=== PATIENT | male | born 1970 | race Caucasian/White ===

== ENCOUNTER 2023-01-02 12:03 | Inpatient (IN) | payer OTHER ==
[2023-01-02 12:22] VITALS: BMI 24.7
[2023-01-02] MEDS ORDERED: hydrOXYzine PAMOATE 25 MG CAPSULE (FP) PO PRN (13:30)
[2023-01-02] MEDS ORDERED: LOPERAMIDE HCL 2 MG CAPSULE PO PRN (13:30)
[2023-01-02] MEDS ORDERED: IBUPROFEN 600 MG TABLET (FP) PO PRN (13:30)
[2023-01-02] MEDS ORDERED: ACETAMINOPHEN 325 MG TABLET (FP) PO PRN (13:30)
[2023-01-02] MEDS ORDERED: NICOTINE 21 MG/24 HOURS TOPICAL PATCH TD PRN (13:30)
[2023-01-02] MEDS ORDERED: chlordiazePOXIDE HCL 25 MG CAPSULE PO PRN (13:30)
[2023-01-02] MEDS ORDERED: POLYETHYLENE GLYCOL (HEALTHYLAX) 3350 17 GM PACKET PO PRN (13:30)
[2023-01-02] MEDS ORDERED: ONDANSETRON *ODT* 4 MG TABLET SL PRN (13:30)
[2023-01-02] MEDS ORDERED: NICOTINE POLACRILEX 4 MG GUM BUC PRN (13:30)
[2023-01-02] MEDS ORDERED: BENZOCAINE/MENTHOL (CHLORASEPTIC ) LOZENGE MM PRN (13:30)
[2023-01-02] MEDS ORDERED: DICYCLOMINE HCL 10 MG CAPSULE PO PRN (13:30)
[2023-01-02] MEDS ORDERED: BISMUTH SUBSALICYLATE 262 MG/15 ML BTL PO PRN (13:30)
[2023-01-02] MEDS ORDERED: MAG HYDROX/AL HYDROX/SIMETH 30 ML UNIT-DOSE CUP PO PRN (13:30)
[2023-01-02] MEDS ORDERED: guaiFENesin 600 MG TABLET.ER (FP) PO PRN (13:30)
[2023-01-02] MEDS ORDERED: MAGNESIUM HYDROX 2400MG/30ML ORAL SUSPENSION 30 ML CUP PO PRN (13:30)
[2023-01-02] MEDS ORDERED: METHOCARBAMOL 500 MG TABLET PO PRN (13:30)
[2023-01-02] MEDS ORDERED: IBUPROFEN 400 MG TABLET (FP) PO PRN (13:30)
[2023-01-02] MEDS ORDERED: BENZONATATE 200 MG CAPSULE PO PRN (13:30)
[2023-01-02] MEDS ORDERED: amLODIPine BESYLATE 10 MG TABLET (FP) PO ONE (13:36)
[2023-01-02] MEDS ORDERED: amLODIPine BESYLATE 5 MG TABLET (FP) ONE (14:19)
[2023-01-02] MEDS ORDERED: chlordiazePOXIDE HCL 25 MG CAPSULE ONE (14:21)
[2023-01-02] MEDS: cloNIDine HCL 0.1 MG TABLET PO PRN (15:00)
[2023-01-02] MEDS ORDERED: levETIRAcetam 250 MG TABLET PO ONE (15:00)
[2023-01-02 17:28] LABS: HEMATOCRIT 44.5 % (35.4-49); HEMOGLOBIN 15.1 GM/dL (11.7-16.9); MCH 32.9 pg (25.7-33.7); MCHC 33.9 g/dl (32.0-35.9); MEAN CELL VOLUME 97.2 fl (80-96); MEAN PLT VOLUME 8.2 fl (7.5-11.1); PLATELET COUNT 216 10^3/uL (134-434); RBC 4.58 M/mm3 (4.00-5.60); RDW 15.1 % (11.9-15.9)
[2023-01-02] MEDS: chlordiazePOXIDE HCL 25 MG CAPSULE PO SCH ×2 (17:36→22:13)
[2023-01-02 17:55] LABS: CALCIUM 8.8 mg/dL (8.5-10.1)
[2023-01-02 17:56] LABS: ALBUMIN 3.7 g/dl (3.4-5.0); BLOOD UREA NITROGEN 16.8 mg/dL (7-18)
[2023-01-02 18:00] LABS: BILIRUBIN,TOTAL 1.5 mg/dL (0.2-1)
[2023-01-02] MEDS: levETIRAcetam 250 MG TABLET PO SCH (22:10)
[2023-01-02] MEDS: MELATONIN 5 MG TABLETS PO SCH (22:13)
[2023-01-02] MEDS: THIAMINE HCL 100 MG TABLET (FP) PO SCH (22:15)
[2023-01-03] MEDS: chlordiazePOXIDE HCL 25 MG CAPSULE PO SCH ×4 (05:48→22:13)
[2023-01-03] MEDS ORDERED: levETIRAcetam 500 MG TABLET (FP) PO SCH (10:00)
[2023-01-03] MEDS: PRENATAL VITAMINS W/ FOLIC ACID TABLET (FP) PO SCH (10:33)
[2023-01-03] MEDS: amLODIPine BESYLATE 10 MG TABLET (FP) PO SCH (10:33)
[2023-01-03] MEDS: levETIRAcetam 500 MG TABLET (FP) PO SCH (10:34)
[2023-01-03] MEDS: MELATONIN 5 MG TABLETS PO SCH (22:12)
[2023-01-03] MEDS: THIAMINE HCL 100 MG TABLET (FP) PO SCH (22:12)
[2023-01-03] MEDS: levETIRAcetam 250 MG TABLET PO SCH (22:12)
[2023-01-04] MEDS: chlordiazePOXIDE HCL 25 MG CAPSULE PO SCH ×4 (05:45→22:02)
[2023-01-04] MEDS: levETIRAcetam 500 MG TABLET (FP) PO SCH (10:17)
[2023-01-04] MEDS: amLODIPine BESYLATE 10 MG TABLET (FP) PO SCH (10:17)
[2023-01-04] MEDS: PRENATAL VITAMINS W/ FOLIC ACID TABLET (FP) PO SCH (10:17)
[2023-01-04] MEDS: levETIRAcetam 250 MG TABLET PO SCH (22:02)
[2023-01-04] MEDS: THIAMINE HCL 100 MG TABLET (FP) PO SCH (22:02)
[2023-01-04] MEDS: MELATONIN 5 MG TABLETS PO SCH (22:04)
[2023-01-05] MEDS ORDERED: chlordiazePOXIDE HCL 10 MG CAPSULE PO PRN
[2023-01-05] MEDS: chlordiazePOXIDE HCL 10 MG CAPSULE PO SCH ×4 (05:26→22:07)
[2023-01-05] MEDS: PRENATAL VITAMINS W/ FOLIC ACID TABLET (FP) PO SCH (10:41)
[2023-01-05] MEDS: levETIRAcetam 500 MG TABLET (FP) PO SCH (10:41)
[2023-01-05] MEDS: amLODIPine BESYLATE 10 MG TABLET (FP) PO SCH (10:41)
[2023-01-05] MEDS: MELATONIN 5 MG TABLETS PO SCH (22:07)
[2023-01-05] MEDS: levETIRAcetam 250 MG TABLET PO SCH (22:07)
[2023-01-05] MEDS: THIAMINE HCL 100 MG TABLET (FP) PO SCH (22:07)
[2023-01-06] MEDS: chlordiazePOXIDE HCL 10 MG CAPSULE PO SCH ×2 (05:44→17:36)
[2023-01-06] MEDS: levETIRAcetam 500 MG TABLET (FP) PO SCH (10:09)
[2023-01-06] MEDS: PRENATAL VITAMINS W/ FOLIC ACID TABLET (FP) PO SCH (10:09)
[2023-01-06] MEDS: amLODIPine BESYLATE 10 MG TABLET (FP) PO SCH (10:09)
[2023-01-06] MEDS: cloNIDine HCL 0.1 MG TABLET PO PRN (17:36)
[2023-01-06] MEDS: levETIRAcetam 250 MG TABLET PO SCH (22:08)
[2023-01-06] MEDS: THIAMINE HCL 100 MG TABLET (FP) PO SCH (22:09)
[2023-01-06] MEDS: MELATONIN 5 MG TABLETS PO SCH (22:09)
[2023-01-07] MEDS ORDERED: chlordiazePOXIDE HCL 10 MG CAPSULE PO ONE (05:00)
[2023-01-07 10:01] VITALS: BP 157/92; PULSE 67; RESP 16; TEMP 97.9
== END 2023-01-07 09:41 | disposition home or self-care (01) | DRG 775 ==
LOC: YASAS 12:03 → Y3N 14:14
PROVIDERS: ADMIT Allergy & Immunology; ATTEND Surgery
PROC: HZ2ZZZZ Detoxification Services for Substance Abuse Treatment (ICD-10-PCS; principal; 2023-01-02)
DX: F10.230 Alcohol dependence with withdrawal, uncomplicated (principal); F17.210 Nicotine dependence, cigarettes, uncomplicated; F41.9 Anxiety disorder, unspecified; F32.A Depression, unspecified; G40.909 Epilepsy, unspecified, not intractable, without status epilepticus; I10 Essential (primary) hypertension
CPT/HCPCS: 36415; 80053; 85027; 86780; 87811; 93005; 93010; C9803-CS; U0003; U0005